=== PATIENT | female | born 1935 | race Caucasian/White ===

== ENCOUNTER → 2016-08-21 | Outpatient (CLI) | payer OTHER ==
[~2016-08-21] MED LIST: ATENOLOL 25MG T25 M1 PO; BACTRIM DS TAB1 EACH PO; BISACODYL SUPP10 MG RECTAL; CHILDREN'S ASPI81 M1 PO; COMPAZINE10 MG PO; COZAAR 25 MG TA25 M1 PO; FEOSOL325 M1 PO; FLOMAX0.4 MG PO; HUMALOG100 UNIT/1 SUBQ; HUMALOG100 UNIT/2 PO; HUMALOG100 UNIT/2 SUBQ; KEFLEX500 MG PO; LANTUS100 UNIT/M SUBQ; LEVEMIR SUBQ; LOVASTATIN 20 M20 MG PO; MILK OF MA2400 MG/10 PO; PLAVIX 75 MG TA75 M1 PO; REMERON15 MG PO; TAMIFLU75 MG PO; TRAMADOL 50 MG50 MG PO
== END ==
LOC: CAT 08:15
DX: M62.81 Muscle weakness (generalized) (principal)

== ENCOUNTER 2016-09-10 13:50 | Emergency (ER) | payer OTHER ==
[~2016-09-10] VITALS: Ht 162.6 cm; Wt 54.9 kg
--- NOTE | ~2016-09-10 | EKG ---
[place] [address] [facility] [employer] [place] [address] ELECTROCARDIOGRAM REPORT Name: KETANGLADIS Room #: REG GIOVANNA Pompa#: [id number] Admission: 09/10/16 Attend Phys: Discharge: Date of : 31 Report #: [id number] THIS REPORT FOR: //name// [facility] ED Test Date: 2016-09-10 Test Time: 14:13:35 Pat Name: GLADIS ACEVES Department: Room: Gender: F Continuity Clerk: MZOOK : 1935 Requested By: Herb Renee Order Number: [id number] MD: Lorenzo Tello Measurements Intervals [place] Rate: 100 P: 12 HI: 164 QRS: -50 QRSD: 134 T: 124 QT: 379 QTc: 489 Interpretive Statements Sinus tachycardia Left bundle branch block Baseline wander in lead(s) V1,V4 No previous ECG available for comparison Electronically Signed On 09-10-2016 15:17:11 AVIONICS SUPERVISOR by Lorenzo Tello [email or web address] <ELECTRONICALLY SIGNED> By: Lorenzo Tello MD 09/10/16 1517 1413 1413 Lorenzo Tello MD /SAL
[2016-09-10] MEDS ORDERED: FEOSOL325 M1 PO (14:22)
[2016-09-10] MEDS ORDERED: CHILDREN'S ASPI81 M1 PO (14:22)
[2016-09-10] MEDS ORDERED: LEVEMIR SUBQ ×2 (14:23→15:02)
[2016-09-10 14:33] LABS: ABSOLUTE NEUTROPHILS 5.1 thou/uL (1.4-8.2); BASOPHILS 0.5 % (0.0-2.0); EOSINOPHILS 1.1 % (0.0-3.0); HEMATOCRIT 26.9 % (37.0-47.0); HEMOGLOBIN 8.7 gm/dL (12.0-15.0); LYMPHOCYTES 27.7 % (24.0-44.0); MCHC 32.5 % (28.0-37.0); MCV 89.3 fL (80.0-100.0); MONOCYTES 10.1 % (1.0-8.0); PLATELET COUNT 289 thou/uL (150-400); POLYS 60.6 % (36.0-66.0); RBC 3.01 mil/uL (4.20-5.00); RDW 16.2 % (10.5-14.5); WBC 8.4 thou/uL (4.0-11.0)
[2016-09-10 14:38] LABS: URINE BILIRUBIN NEGATIVE (Negative); URINE BLOOD NEGATIVE (Negative); URINE COLOR YELLOW; URINE GLUCOSE-RANDOM* 3+ (Negative); URINE KETONES NEGATIVE (Negative); URINE LEUKOCYTES-REFLEX 1+ (Negative); URINE PROTEIN (DIPSTICK) NEGATIVE (Negative); URINE UROBILINOGEN 0.2 E.U./dl (0.2-1.0)
[2016-09-10 14:38] LABS: MANUAL DIFF NO
[2016-09-10 14:41] LABS: ANION GAP 9 mmol/L (7-16); BUN 25 mg/dL (7-18); CALCIUM 8.8 mg/dL (8.5-10.1); CHLORIDE 99 mmol/L (98-107); CO2 27 mmol/L (21-32); CREATININE 1.7 mg/dL (0.6-1.3); GLUCOSE 446 mg/dL (70-99); POTASSIUM 4.5 mmol/L (3.5-5.1); SODIUM 135 mmol/L (136-145)
[2016-09-10] MEDS ORDERED: LOVASTATIN 20 M20 MG PO (14:49)
[2016-09-10] MEDS ORDERED: PLAVIX 75 MG TA75 M1 PO (14:49)
[2016-09-10] MEDS ORDERED: REMERON15 MG PO (14:49)
[2016-09-10] MEDS ORDERED: HUMALOG100 UNIT/2 PO (14:50)
[2016-09-10 14:54] LABS: ALBUMIN 3.1 g/dL (3.4-5.0); ALKALINE PHOSPHATASE 101 U/L (46-116); SGOT 14 U/L (15-37); SGPT 20 U/L (30-65); TOTAL BILIRUBIN 0.1 mg/dL (<0.1-1.0); TOTAL PROTEIN 7.7 g/dL (6.4-8.2); TROPONIN-I < 0.04 ng/mL (<0.04-0.07)
[2016-09-10 14:57] LABS: CASTS None Seen /LPF (None Seen); CRYSTALS None Seen /LPF (None Seen); SQUAMOUS 0-3 Few /LPF (0-3); URINE RBC None Seen /HPF (0-2); URINE WBC-REFLEX 6-15 Few /HPF (0-5)
[2016-09-10] MEDS ORDERED: HUMALOG100 UNIT/1 SUBQ (15:00)
[2016-09-10] MEDS ORDERED: HUMALOG100 UNIT/2 SUBQ (15:01)
[2016-09-10] MEDS ORDERED: TAMIFLU75 MG PO (15:04)
[2016-09-10] MEDS ORDERED: KEFLEX500 MG PO (15:20)
[2016-09-10] MEDS ORDERED: TRAMADOL 50 MG50 MG PO (15:20)
[2016-09-10 16:25] VITALS: BP 142/56
== END 2016-09-10 16:27 | disposition home or self-care (01) ==
LOC: ER 13:50
PROVIDERS: Emergency Medicine
DX: N39.0 Urinary tract infection, site not specified (principal); D64.9 Anemia, unspecified; K59.00 Constipation, unspecified; E11.9 Type 2 diabetes mellitus without complications; M54.5 Low back pain; N28.1 Cyst of kidney, acquired; I10 Essential (primary) hypertension; Z79.4 Long term (current) use of insulin; Z86.73 Personal history of transient ischemic attack (TIA), and cerebral infarction without residual deficits

== ENCOUNTER 2016-09-12 16:09 | Emergency (ER) | payer OTHER ==
[~2016-09-12] VITALS: Ht 162.6 cm; Wt 54.4 kg
--- NOTE | ~2016-09-12 | EKG ---
[place] [address] [facility] [email or web address] [address] ELECTROCARDIOGRAM REPORT Name: GLADIS ACEVES Room #: DEP GIOVANNA Pompa#: [id number] Admission: 09/12/16 Attend Phys: Discharge: 09/12/16 Date of : 31 Report #: [id number] THIS REPORT FOR: //name// [facility] ED Test Date: 2016-09-12 Test Time: 16:22:43 Pat Name: GLADIS ACEVES Department: Room: Gender: F Product Inspection Supervisor: Horacio HOLLAND : 1935 Requested By: Janie Castro Order Number: [id number] MD: Samir Roberts Measurements Intervals [place] Rate: 84 P: 26 MO: 203 QRS: -50 QRSD: 142 T: 150 QT: 420 QTc: 497 Interpretive Statements Sinus rhythm Left bundle branch block Compared to ECG 09/10/2016 14:13:35 Sinus tachycardia no longer present Electronically Signed On 09-13-2016 13:41:42 PAINTER ORDNANCE by Samir Roberts [email or web address] <ELECTRONICALLY SIGNED> By: Samir Roberts MD, [facility] 09/13/16 1341 1622 21 Samir Roberts MD, FACC /EPI
[~2016-09-12 16:09] MED LIST changes: -ATENOLOL 25MG T25 M1 PO; -BACTRIM DS TAB1 EACH PO; -BISACODYL SUPP10 MG RECTAL; -COMPAZINE10 MG PO; -COZAAR 25 MG TA25 M1 PO; -FLOMAX0.4 MG PO; -LANTUS100 UNIT/M SUBQ; -MILK OF MA2400 MG/10 PO
[2016-09-12 17:01] LABS: ABSOLUTE NEUTROPHILS 4.5 thou/uL (1.4-8.2); BASOPHILS 0.9 % (0.0-2.0); EOSINOPHILS 1.5 % (0.0-3.0); HEMATOCRIT 27.4 % (37.0-47.0); HEMOGLOBIN 8.9 gm/dL (12.0-15.0); LYMPHOCYTES 19.7 % (24.0-44.0); MCHC 32.6 % (28.0-37.0); MCV 88.9 fL (80.0-100.0); MONOCYTES 8.8 % (1.0-8.0); PLATELET COUNT 271 thou/uL (150-400); POLYS 69.1 % (36.0-66.0); RBC 3.08 mil/uL (4.20-5.00); WBC 6.5 thou/uL (4.0-11.0)
[2016-09-12 17:09] LABS: MANUAL DIFF NO
[2016-09-12 17:16] LABS: ANION GAP 6 mmol/L (7-16); BUN 28 mg/dL (7-18); CHLORIDE 102 mmol/L (98-107); CO2 30 mmol/L (21-32); CREATININE 1.7 mg/dL (0.6-1.3); GLUCOSE 298 mg/dL (70-99); POTASSIUM 4.7 mmol/L (3.5-5.1); SODIUM 138 mmol/L (136-145)
[2016-09-12 17:20] LABS: ALKALINE PHOSPHATASE 96 U/L (46-116); SGOT 11 U/L (15-37); SGPT 17 U/L (30-65); TOTAL BILIRUBIN 0.1 mg/dL (<0.1-1.0); TOTAL PROTEIN 7.7 g/dL (6.4-8.2); TROPONIN-I < 0.04 ng/mL (<0.04-0.07)
[2016-09-12 17:49] LABS: URINE BILIRUBIN NEGATIVE (Negative); URINE BLOOD NEGATIVE (Negative); URINE COLOR YELLOW; URINE GLUCOSE-RANDOM* NEGATIVE (Negative); URINE KETONES NEGATIVE (Negative); URINE NITRITE NEGATIVE (Negative); URINE PROTEIN (DIPSTICK) NEGATIVE (Negative); URINE UROBILINOGEN 0.2 E.U./dl (0.2-1.0)
[2016-09-12 17:55] LABS: CASTS None Seen /LPF (None Seen); SQUAMOUS 0-3 Few /LPF (0-3)
[2016-09-12 17:56] LABS: BACTERIA 1-9 Few /HPF (None Seen); CRYSTALS None Seen /LPF (None Seen); URINE RBC 0-2 Rare /HPF (0-2); URINE WBC >25 Many /HPF (0-5)
[2016-09-12] MEDS ORDERED: KEFLEX500 MG PO (18:28)
[2016-09-12] MEDS ORDERED: BACTRIM DS TAB1 EACH PO (19:12)
[2016-09-12 19:40] VITALS: BP 141/65
== END 2016-09-12 19:42 ==
LOC: ER 16:09
PROVIDERS: Physician Assistant
DX: D64.9 Anemia, unspecified (principal); R53.1 Weakness; N39.0 Urinary tract infection, site not specified; N17.9 Acute kidney failure, unspecified; E11.9 Type 2 diabetes mellitus without complications; I10 Essential (primary) hypertension; Z86.73 Personal history of transient ischemic attack (TIA), and cerebral infarction without residual deficits

== ENCOUNTER 2016-10-29 11:26 | Inpatient (IN) | payer OTHER ==
[~2016-10-29] VITALS: Ht 162.6 cm; Wt 59.0 kg
--- NOTE | ~2016-10-29 | P ---
[facility] [place] [address] PROCEDURE REPORT Name: GLADIS ACEVES Room #: 439-P ADM IN M.R.#: [id number] Admission: 10/29/16 Attend Phys: Dell Yee MD Discharge: Date of : 31 Report #: [id number] THIS REPORT FOR: //name// CC: Vito Yee MD DATE OF SERVICE: 10/30/2016 PATIENT OF: Dell Yee M.D. and Vito Wray M.D. PROCEDURE: Diagnostic EGD. INDICATION FOR PROCEDURE: This patient has had nausea and vomiting that started 3 days ago. She has also had diarrhea and black dark-colored stools for about 3 days. She has been on iron. She appears to have an ileus on x-rays. She does have diabetes mellitus type 2. Gastroparesis may also be in play here as well. Her hemoglobin has dropped since admission from 11.2 on admission down to 9.4 today since yesterday and EGD is being performed to try to evaluate for possible sources of melena, even though she has been on Plavix and we would not really be able to treat anything significant. Informed consent for this procedure was obtained prior to the administration of any medication. The risks of the procedure, which include bleeding, perforation, infection, complications of sedation and the possibility I could miss something, have been explained to the patient and she has indicated her consent by signing. Propofol was slowly titrated before and during this procedure for patient comfort by the anesthesia service. The [employer] upper videoscope was introduced through the upper esophageal sphincter and advanced under direct visualization to the descending duodenum. Findings are noted on withdrawal of the scope. The duodenal mucosa appears normal throughout its entirety. Pylorus, normal mucosa. Antrum, normal mucosa. Body, normal mucosa. Cardia and fundus, in the fundus of the stomach, there is an abnormal patch of severe gastritis, approximately 3 x 4 cm across. It is nonbleeding, but it is a very a dark violaceous lesion. I was unable to the biopsy it due to the fact that the patient has been taking Plavix. Retroflex view did not reveal any hiatal hernia and the cardia of the stomach appears normal. The scope is withdrawn to the esophagus. The Z line is appropriately located at the top of the gastric folds and appears normal. The esophageal mucosa appears normal throughout its entirety. The scope was withdrawn. The patient went to the recovery area in stable condition. She tolerated the procedure well. IMPRESSION: Large patch of violaceous, edematous gastritis in the fundus of the [address] [address] PROCEDURE REPORT Name: GLADIS ACEVES Room #: 439-P ADM IN M.R.#: [id number] Admission: 10/29/16 Attend Phys: Dell Yee MD Discharge: Date of : 31 Report #: [id number] stomach, uncertain etiology. RECOMMENDATIONS: My recommendations were to ask her to have a gastric emptying study in the morning. We will start her on clear liquids p.o. cautiously and resume her medications. I think the EGD should be repeated when she can be off of Plavix so that we can biopsy this lesion or at the very least be sure that it had healed up and gone away. Perhaps this could be done within the next couple of weeks. Thank you very much once again for allowing me to participate in her care, Dr. Yee. <ELECTRONICALLY SIGNED> By: Verito Medrano DO 11/05/16 1153 1417 0115 Verito Medrano DO /nt
--- NOTE | ~2016-10-29 | HC ---
[facility] [address] [facility] [place] [address] CONSULTATION Name: GLADIS ACEVES Room #: 439-P [facility] IN M.R.#: [id number] Admission: 10/29/16 Attend Phys: Dell Yee MD Discharge: 11/06/16 Date of : 31 Report #: [id number] THIS REPORT FOR: //name// CC: Vito Yee DATE OF SERVICE: 10/29/2016 CHIEF COMPLAINT: Abdominal pain. Consultation from the emergency department physician. HISTORY OF PRESENT ILLNESS: The patient is a very pleasant 81-year-old female who is a resident at [facility] who developed abdominal distention with diarrhea and melena over the past 5-6 days. She has complained of decreased urine output and poor appetite during that period. She also has had episode of nausea and emesis 3 nights ago. The patient does take iron supplements, which the patient does believe are consistent with the dark stools. She does have extensive prior operative history with previous cholecystectomy, appendectomy, hysterectomy, previous ureteral stent apparently for kidney stones and urinary tract infection. PAST MEDICAL HISTORY: Positive for type 2 diabetes, hypertension, previous CVA, on Plavix and aspirin for that. PAST SURGICAL HISTORY: As described above. Cholecystectomy, appendectomy, hysterectomy, also has history of gastric ulcers, but the patient does not believe she has ever undergone EGD. She does believe that she has had colonoscopy greater than 10 years ago and does not remember the results of any of that. SOCIAL HISTORY: The patient is resident at [facility]. She is a retired [employer]PPER [employer]ING [employer]. Negative for tobacco, ETOH or drug use. MEDICATIONS: Include aspirin, iron supplement, Levemir, lovastatin, Plavix, Remeron, insulin, Tamiflu. REVIEW OF SYSTEMS: CONSTITUTIONAL: Negative for fevers, chills or unwanted weight loss. OCULAR: No diplopia or visual change. HEENT: No dysphagia or odynophagia. PULMONARY: No productive cough, no hemoptysis. CARDIOVASCULAR: No chest pain or palpitation. GASTROINTESTINAL: As described in the HPI. Positive for abdominal pain, melena, diarrhea as well as abdominal distention. GENITOURINARY: Positive for decreased urine output. Negative for dysuria or hematuria. MUSCULOSKELETAL: Negative for back pain or joint swelling. CUTANEOUS: Negative for skin lesions or rashes. NEUROLOGIC: No focal weakness or tingling. PHYSICAL EXAMINATION: GENERAL: The patient is afebrile and normotensive. She [facility] [address] [place] [address] CONSULTATION Name: GLADIS ACEVES Room #: 439-P [facility] IN M.R.#: [id number] Admission: 10/29/16 Attend Phys: Dell Yee MD Discharge: 11/06/16 Date of : 33 Report #: [id number] is awake, alert and oriented. She does give appropriate history. Normal mood and affect are appreciated. HEENT: Head is atraumatic and normocephalic. She does appear pale. No icterus is appreciated. Cranial nerves are intact and symmetric. Mucosae are slightly dry. NECK: Supple, no jugular venous distention. LUNGS: Clear to auscultation. HEART: Regular, without murmur. ABDOMEN: Soft and mildly distended. She is diffusely mildly tender to palpation. No rebound or guarding is appreciated. Multiple well-healed surgical scars. No obvious hernia. EXTREMITIES: Without clubbing, cyanosis or edema. 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 No focal deficits. No rashes or lesions. LABORATORY STUDIES: Reviewed. Urinalysis showed 1+ glucose, 2+ leukocytes, 6-10 wbc's and 1-9 bacteria. Complete blood count showed a hemoglobin of 11.2, platelets of 291. White count of 5.9. No left shift with segmental neutrophils of 57%. Basic metabolic profile shows a creatinine of 1.8, BUN of 41, AST of 298, ALT of 24, lipase of 61, alk phos of 105, total bilirubin 0.1, lactate of 1.9. Plain films of the abdomen obtained in the emergency department showed diffuse bowel distention consistent with ileus, no obvious obstruction. No air fluid levels. No free air. CT scan of the abdomen and pelvis without contrast obtained in the emergency department shows bile duct dilatation up to 1.9 cm. Central mild intrahepatic ductal prominence noted. Pancreas unremarkable. Mild distention of the distal small bowel loops. No sign of colitis. No free air or free fluid. Mild diverticulosis is seen. No diverticulitis is noted. All of this was read as being consistent with a focal ileus versus partial small-bowel obstruction, small right-sided pleural effusion. IMPRESSION: 1. 81-year-old female patient with 5-6 days of diarrhea with reported melena, hemoglobin greater than 11, but patient does appear dehydrated based upon urinalysis, BUN and creatinine levels. No sign of bowel obstruction or acute intraabdominal process that would be amenable to general surgical intervention. Would consider evaluation by Gastroenterology for potential colonoscopy versus EGD given history of gastric ulcers and more recent reports of melena. Would send stool sample for evaluation to rule out Clostridium difficile infection. Low index of suspicion for this given her normal white blood cell count and overall clinical picture. 2. No recommendation for any surgical intervention at this time. Consultation very much appreciated. We will continue to follow closely and make further recommendations based upon clinical status, radiographic findings and laboratory findings. <ELECTRONICALLY SIGNED> By: Davonte Pedroza MD 11/11/16 0650 1832 0208 Davonte Pedroza MD /nt
--- NOTE | ~2016-10-29 | HC ---
[facility] [address] [place] [address] CONSULTATION Name: GLADIS ACEVES Room #: 439-P ADM IN M.R.#: [id number] Admission: 10/29/16 Attend Phys: Dell Yee MD Discharge: Date of : 31 Report #: [id number] THIS REPORT FOR: //name// CC: Vito Yee DATE OF SERVICE: 11/05/2016 INDICATION: Tachycardia. HISTORY OF PRESENT ILLNESS: This is an 81-year-old female who was transferred from [facility] secondary to abdominal pain and decreased urine out. She was diagnosed with an ileus, gastritis, and urinary tract infection. She was also found to have general debility and cervical radiculopathy. We are asked to evaluate the patient for tachycardia. I have reviewed the monitor, revealing sinus tachycardia and sinus rhythm. There were frequent atrial premature contractions with nonsustained SVT, probable paroxysmal atrial tachycardia. Recent TSH level was within normal limits. She offers no complaints of dyspnea or chest pains. PAST MEDICAL HISTORY: Hypertension, diabetes mellitus, and CVA. ALLERGIES: None. MEDICATIONS: Please see the MAR for full listing. SOCIAL HISTORY: Negative for tobacco use. The patient lives in a half-way. FAMILY HISTORY: Negative for premature CAD. REVIEW OF SYSTEMS: A full 10-point review of systems performed. Only the pertinent positives and negatives are described in the HPI. PHYSICAL EXAMINATION: VITAL SIGNS: Blood pressure is 150/80, heart rate is 100 beats per minute. GENERAL APPEARANCE: This is an elderly appearing female, in no acute respiratory distress. HEAD AND EYES: Normocephalic. Sclerae are anicteric. ENT: Oral mucosa moist. NECK: Supple. LUNGS: Diminished breath sounds at the bases. CARDIAC: S1, S2 positive, 1/6 systolic murmur. ABDOMEN: Soft and nontender. EXTREMITIES: No major joint deformities. Trace lower extremity edema. LABORATORY VALUES: White count is 8.9, hemoglobin is 9.2. Creatinine is 1.1. [facility] [address] [place] [address] CONSULTATION Name: GLADIS ACEVES Room #: 439- ADM IN M.R.#: [id number] Admission: 10/29/16 Attend Phys: Dell Yee MD Discharge: Date of : 33 Report #: [id number] ASSESSMENT: 1. Nonsustained supraventricular tachycardia/paroxysmal atrial tachycardia, appears to be clinically asymptomatic. We will start the patient on a beta ciara. The TSH level is within normal limits. She will need an echocardiogram. 2. Abdominal pain/ileus, appears to be improving. 3. Urinary tract infection, continue antibiotics. 4. Cervical radiculopathy. 5. Advanced age/general debility. Thank you for allowing me to participate in the care of your patient. <ELECTRONICALLY SIGNED> By: Jame Packer MD 11/06/16 0824 1055 1138 MD xuan Kline
--- NOTE | ~2016-10-29 | 2DMMODE ---
[facility] [place] [address] 2 D/M-MODE ECHOCARDIOGRAM Name: GLADIS ACEVES Room #: 439-P ADM IN M.R.#: [id number] Admission: 10/29/16 Attend Phys: Duong Pierre Discharge: Date of : 31 Date of Service: 11/05/16 1455 Report #: [id number] THIS REPORT FOR: //name// APPROVED REPORT EXAM: Comprehensive 2D, Doppler, and color-flow Echocardiogram Patient Location: Bedside/Room 439 Blood Pressure: 139/64 mmHg HR: 85 bpm Other Information Study Quality: Good Technically limited study due to uncooperative and confused patient.. Indications SVT. Hx: DM, HTN, CVA 2D Dimensions IVSd: 13.00 (7-11mm) LVOT Diam: 19.00 (18-24mm) LVDd: 4.40 mm PWd: 13.00 (7-11mm) LVDs: 39.00 (25-40mm) IVC: 24.00 mm Aortic Root: 32.00 mm Volumes Left Atrial Volume (Systole) LA ESV Index: 33.00 mL/m2 Aortic Valve AoV Peak Paulino.: 1.70 m/s AO Peak Gr.: 11.00 mmHg LV Max: 0.87 m/s ROBERTO CARLOS Vmax: 1.40 cm2 Mitral Valve MV E Max Paulino.: 1.50 m/s E/A Ratio: 1.3 MV A Paulino.: 1.20 m/s MV Decel. Time: 94.00 ms TDI E/Lateral E': 39.00 E/Medial E': 34.00 [facility] [address] [place] [address] 2 D/M-MODE ECHOCARDIOGRAM Name: GLADIS ACEVES Room #: 439-P ADM IN ..#: [id number] Admission: 10/29/16 Attend Phys: Duong Pierre Discharge: Date of : 31 Date of Service: 11/05/16 1455 Report #: [id number] Pulmonary Valve PV Peak Paulino.: 0.67 m/s Tricuspid Valve TR Peak Paulino.: 4.10 m/s RAP Estimate: 15.00 mmHg TR Peak Gr.: 66.00 mmHg RVSP: 81.00 mmHg Left Ventricle The left ventricle is normal size. Regional wall motion abnormalities are noted. Paradoxical septal motion consistent with conduction abnormality. Mild concentric left ventricular hypertrophy. Left ventricular systolic function is decreased. LVEF is 35-40%. Grade II - pseudonormal filling dynamics. Right Ventricle The right ventricle is normal size. The right ventricular systolic function is normal. Atria Left atrium is borderline dilated. The right atrium size is normal. Aortic Valve Aortic valve is calcified. No aortic regurgitation is present. Mild aortic stenosis. Mitral Valve Mitral valve leaflets are mildly thickened. Moderate mitral annular calcification. Moderate mitral regurgitation. Tricuspid Valve The tricuspid valve is normal in structure. There is moderate tricuspid regurgitation. The right atrial pressure is estimated at 15 mmHg. There is severe pulmonary hypertension with an estimated PAP of 81mmHg. Pulmonic Valve Pulmonic valve is not well visualized. Trace pulmonic regurgitation. Great Vessels The aortic root is normal in size. Aortic arch is not well visualized. IVC is dilated and collapses <50% with inspiration. Pericardium [facility] [address] [place] [address] 2 D/M-MODE ECHOCARDIOGRAM Name: GLADIS ACEVES Room #: 439-P ADM IN M.R.#: [id number] Admission: 10/29/16 Attend Phys: Duong Pierre Discharge: Date of : 31 Date of Service: 11/05/16 1455 Report #: [id number] There is no pericardial effusion. Right and left pleural effusion noted. <Conclusion> The left ventricle is normal size. Regional wall motion abnormalities are noted. Paradoxical septal motion consistent with conduction abnormality. Left ventricular systolic function is decreased. LVEF is 35-40%. Left atrium is borderline dilated. Aortic valve is calcified. Mild aortic stenosis. Mitral valve leaflets are mildly thickened. Moderate mitral annular calcification. Moderate mitral regurgitation. There is moderate tricuspid regurgitation. The right atrial pressure is estimated at 15 mmHg. There is severe pulmonary hypertension with an estimated PAP of 81mmHg. Trace pulmonic regurgitation. IVC is dilated and collapses <50% with inspiration. <ELECTRONICALLY SIGNED> By: Barrett Roldan MD 11/05/16 1455 1455 1455 Barrett Roldan MD /INF
--- NOTE | ~2016-10-29 | HC ---
[facility] [place] [address] CONSULTATION Name: GLADIS ACEVES Room #: 439-P ADM IN M.R.#: [id number] Admission: 10/29/16 Attend Phys: Dell Yee MD Discharge: Date of : 33 Report #: [id number] THIS REPORT FOR: //name// CC: Vito Yee MD DATE OF SERVICE: 10/30/2016 GASTROENTEROLOGY CONSULTATION PATIENT OF: Vito Wray M.D. and Dell Yee M.D. HISTORY OF PRESENT ILLNESS: This is a very pleasant 81-year-old white female whom I was asked to see her for evaluation of nausea, vomiting and diarrhea. The patient states she became nauseated this past Thursday and Thursday, she developed projectile vomiting. She had stopped urinating on Thursday or Thursday and had a straight cath done on Thursday. She has been passing some black stools, but has not been on iron. She still has no appetite at this time, still is mildly nauseated, but has not had any further vomiting or diarrhea since she was hospitalized. PAST MEDICAL HISTORY: Significant for hypertension. 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 She has brittle diabetes mellitus. She has history of hyperlipidemia. She was on thyroid medication in the past, but has not been on thyroid for several years. She has a history of arthritis. PAST SURGICAL HISTORY: Significant for cholecystectomy, appendectomy and she has had bilateral salpingo-oophorectomies. She has had bilateral cataract extractions. 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 Her right eye vision is now failing. ALLERGIES: No known drug allergies. MEDICATIONS: Prior to admission includes Dulcolax suppositories, Plavix and ferrous sulfate. She takes Levemir, Humalog, insulin, lovastatin, milk of magnesia, Remeron, Compazine and tramadol. SOCIAL HISTORY: The patient does not smoke. She rarely drinks any alcohol. She has had a blood transfusion in the past. Denies any history of jaundice, hepatitis or pancreatitis. FAMILY HISTORY: Significant for thyroid cancer in her mother. She has a sister and brother that both had to have colon resections, but they were not for colon [address] [address] CONSULTATION Name: GLADIS ACEVES Room #: 439-P ADM IN M.R.#: [id number] Admission: 10/29/16 Attend Phys: Dell Yee MD Discharge: Date of : 33 Report #: [id number] cancer. She is unsure what the reason for these colon resections were, other than bowel blockages. REVIEW OF SYSTEMS: She admits to dysphagia. Denies odynophagia. She does have gastroesophageal reflux. She has no history of a hiatal hernia, but has had peptic ulcer disease in the past. She states she thinks her weight has gone up recently and usually her appetite is very good, but since Thursday, she has really been nauseated and has still no appetite today. She denies any hematemesis or hematochezia. She has had black stools and she thinks that is from iron. She does have constipation. Denies diarrhea. She had pain in both the lower quadrants that began last weekend. It then moved to the midline and shot up into the mid chest. It is now settled down and all the other pain has resolved, except for tenderness in the right lower quadrant and pain in the right lower quadrant. She denies jaundice, hepatitis or pancreatitis. PHYSICAL EXAMINATION: GENERAL: Reveals a well-developed, well-nourished 81-year-old white female in no apparent distress at the time of my examination. She is awake, alert, oriented times 4 and cooperative and very pleasant to converse with. VITAL SIGNS: Blood pressure is 126/59, temperature 97.4, pulse 73 and respirations are 20. HEENT: She is normocephalic and atraumatic and anicteric. HEART: Rate and rhythm are regular, with a normal S1 and S2. LUNGS: Clear bilaterally. ABDOMEN: Soft. Bowel sounds are present in all 4 quadrants. There is no palpable organomegaly or mass. There is some tenderness to palpation in the right lower quadrant, but no rebound or guarding. EXTREMITIES: Warm and dry. NEUROLOGIC: She appears grossly intact, without lateralizing signs. SIGNIFICANT LABORATORY DATA: Show a creatinine of 1.8 on admission with a BUN of 41. Lipase was normal. Liver enzymes are either low or normal. CBC: White count is normal; hemoglobin 11.2 on admission, down to 9.4 after hydration. She has not had any further stools in the hospital. Urinalysis just shows 1+ glucose. Urine culture is pending. 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 Liver was normal, spleen showed splenic granulomas, but was normal in size. Gallbladder is absent. There is significant bile duct dilatation, measuring up to 1.9 cm, compared with 1.5 cm on a previous exam a couple of months ago. There is mild central intrahepatic ductal prominence. The pancreas is normal in size, without abnormalities. Adrenal glands are normal. There was some diverticulosis seen in the distal colon. No diverticulitis. Uterus was surgically absent, they said. There is some mild gaseous and fluid distention of the [id number] small bowel loops in the upper pelvic region, with some more proximal and distal [facility] [address] [place] [address] CONSULTATION Name: GLADIS ACEVES Room #: 439-P ADM IN M.R.#: [id number] Admission: 10/29/16 Attend Phys: Dell Yee MD Discharge: Date of : 33 Report #: [id number] small bowel normal in caliber and they thought this looks like an ileus. IMPRESSION: 1. Nausea and vomiting with one episode of projectile vomiting this past Thursday and diarrhea with black stools. The patient is on oral iron. Lower abdominal pain that started bilaterally in the lower quadrants and moved to the midline and then went up into her mid chest area. Now the pain is settled only in the right lower quadrant. She has had an appendectomy and bilateral salpingo-oophorectomies. It is possible she may have adhesions in this area. 2. Urinary retention. The patient has an indwelling Monet catheter. I am not sure why she would develop a neurogenic bladder at this point. 3. History of dysphagia. 4. Gastroesophageal reflux. 5. Constipation. 6. Hypertension. 7. History of a right cerebrovascular accident with left-sided symptoms that seem to be resolved. 8. Brittle diabetic. 9. Hyperlipidemia. 10. Arthritis. 11. 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 12. Several family members have had thyroid problems. Her mother had thyroid cancer. 13. Ileus on CT. 14. Dilated bile ducts with normal liver enzymes. The patient is status post cholecystectomy. 15. 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 17. History of an episode of severe sepsis from a urinary tract infection at [place] last May. She was in the hospital 2 weeks at that time and was apparently very ill at that point. RECOMMENDATIONS: My recommendations are as follows: I agree with the proton pump inhibitors. We are planning on doing an EGD today. She is n.p.o. for that and she is agreeable. We will schedule her for MiraLax 1-3 times a day as needed for constipation. She can continue this at home for her constipation. We will repeat a KUB and upright in the morning to follow up on this ileus/possible small-bowel obstruction. Thank you very much once again for allowing me to participate in her care, Dr. Yee. <ELECTRONICALLY SIGNED> By: Verito Medrano DO 10/31/16 0015 [id number] Verito Medrano DO /nt
--- NOTE | ~2016-10-29 | HC ---
[facility] [place] [address] CONSULTATION Name: GLADIS ACEVES Room #: 439-P [facility] IN M.R.#: [id number] Admission: 10/29/16 Attend Phys: Dell Yee MD Discharge: 11/06/16 Date of : 33 Report #: [id number] THIS REPORT FOR: //name// CC: Vito Yee DATE OF SERVICE: 11/03/2016 HISTORY OF PRESENT ILLNESS: This is an 81-year-old female patient who was evaluated by me for multiple symptoms. I do not think the history is very clear. She came with abdominal symptoms on admission, but today, her most of the symptom was that she is having pain in the right shoulder, in the neck and spine. She said it is going on for some time, but it has become worse. It is associated with some confusion, but she indicates she does not have any confusion. She does not know anything which makes this pain better or worse. Subsequently, I talked to the patient's daughter and she indicates that this patient was working until about 3 years ago and she has complaint of a lot of back and neck pain. She indicates the patient had an MRI of the brain in [place] about 6 months ago and they did not find any significant abnormality. REVIEW OF SYSTEMS: Partly from the patient and partly from the record. It looks like this patient is being evaluated for abdominal pain by GI. She had some nausea and vomiting. She apparently has a urinary retention. A 14-point review of system was carried out and that also appeared to be showing some history of dysphagia, gastroesophageal reflux, hypertension, stroke on the left according to the patient, but I do not have further, history of diabetes, hyperlipidemia. This was her relevant 14-point review of systems. PAST MEDICAL HISTORY: Positive for bladder infection, but apparently, this all episode is relatively recent. FAMILY HISTORY: Negative for any early age stroke. SOCIAL HISTORY: She does not smoke or drink alcohol. PHYSICAL EXAMINATION: Limited. She indicates she is in a lot of pain. She was irritated because everybody think she is confused. She will not answer the orientation question, but her memory and fund of knowledge appeared to be diminished, but I do not know what her baseline is. Cranial nerve examinations indicate that she has some vision problem with the left eye. Allowing for that, her cranial nerve examination was mostly unremarkable. She is complaining of a lot of pain in the right shoulder and she has a limited mobility there. She has very little movement in the lower extremity. She has well defined to some extent hyperreflexes in the lower extremities. She does appear to have an upgoing plantar. I tried to do the position sense, she will not cooperate with [facility] [address] [place] [address] CONSULTATION Name: GLADIS ACEVES Room #: 439-P DIS IN M.R.#: [id number] Admission: 10/29/16 Attend Phys: Dell Yee MD Discharge: 11/06/16 Date of : 33 Report #: [id number] me. I tried to do the cerebellar sign, she does not have enough strength. I tried to look at the fundus and again, she will not cooperate. She is thinly built individual who does not have any dysmorphic features of eyes, ears and face. Her vision and hearing look adequate. She does not appear to have any thyroid mass. To me, her heart looks irregular, but heart sound looks unremarkable. She does not appear to have marked respiratory difficulty. She has no edema, cyanosis or jaundice. She cannot walk. She barely has much movement in the lower extremities. She indicates this is going on since she has been admitted, but I am not totally certain and I cannot confirm that. Her vital signs indicate a blood pressure of 146/95, respiration is 20, pulse is 96, temperature is 98.4. LABORATORY DATA: Indicates a white count of 9.3. Her last potassium was a little low at 3.3. Her diabetes is out of control with last glucose of 255. I reviewed multiple physicians' note and I reviewed her CAT scan. The CAT scan really did not show any acute changes. IMPRESSION: This is a complicated case, which needs further workup to determine the etiology of the patient's symptom. Firstly, I am concerned about the weakness in the upper and lower extremity and her pain in the shoulder area. This is associated with bladder abnormality and I would like to exclude a spine lesion. Secondly, she did get some morphine and she does have some infection, so it is possible she is developing encephalopathy, but she also has an abnormal rhythm of the heart. We need to make sure it was not a stroke. She needs extensive workup on all these fronts. I would like to do the MRI of whole spine and the brain, but I do not think this patient will be able to cooperate. Since symptoms are in the shoulder and in the neck which she does not move very well, I will start with the MRI of the C-spine and T-spine and see if she is able to tolerate that. I will try to get her MRI of the brain from [facility]. We may have to do rest of the MRI tomorrow. RECOMMENDATIONS: 1. MRI of the brain. 2. MRI of the C-spine. 3. We may have to do an MRI of the brain and L-spine, but I do not think she can tolerate the whole procedure in one setting and we will try to do it in 2 settings depending upon the results of C-spine and T-spine. I did order that stat. We do need some more blood workup which I ordered to her confusion maybe because of morphine, but to evaluate her further, I will do an EEG. I spent more than 50 minutes of time taking care of this patient today and majority of that time was spent counseling the patient about multiple things which I will be doing and my plan, prognosis, etc. I think the patient understood all those, but I am not certain. Therefore, I called the patient's daughter and discussed the same thing with her. [facility] [address] [place] [address] CONSULTATION Name: GLADIS ACEVES Room #: 439-P DIS IN M.R.#: [id number] Admission: 10/29/16 Attend Phys: Dell Yee MD Discharge: 11/06/16 Date of : 33 Report #: [id number] Thank you very much for this referral and I did talk this patient with the nurses looking after this patient and I will follow this patient with you from tomorrow. <ELECTRONICALLY SIGNED> By: Negro Veras MD 11/07/16 1926 [id number] 1628 Negro Veras MD /nt
--- NOTE | ~2016-10-29 | H ---
[facility] [address] [place] [address] HISTORY AND PHYSICAL Name: GLADIS ACEVES Room #: 439-P ADM IN M.R.#: [id number] Admission: 10/29/16 Attend Phys: Dell Yee MD Discharge: Date of : 33 Report #: [id number] THIS REPORT FOR: //name// CC: Vito Yee DATE OF SERVICE: 10/29/2016 CHIEF COMPLAINT: Abdominal pain and urinary retention. HISTORY OF PRESENT ILLNESS: The patient is an 81-year-old female with history of CVA, history of diabetes, hypertension, and history of urinary retention in the past, presented from [facility] secondary to diffuse abdominal pain and decreased urine output. The patient has had abdominal pain since last Thursday. She has had nausea. She vomited once on Thursday. She has also noticed black diarrhea over the last 3 days. The patient has also noticed decreased urine output and subsequently sent to the ER. The nursing staff was able to get a urine output of 200 mL prior to sending the patient to the emergency room. She has also had poor appetite. PAST MEDICAL HISTORY: Significant for cholecystectomy, appendectomy, hysterectomy, stomach ulcers. No history of any bowel obstruction. She has history of dysphagia, history of type 2 diabetes, hypertension, and CVA. HOME MEDICATIONS: Reviewed. Please look at the nursing documentation of home medications. ALLERGIES: No known drug allergy. SOCIAL HISTORY: No smoking, alcohol abuse or illicit drug abuse. The patient lives in a long term. FAMILY HISTORY: Noncontributory for this 81-year-old female. REVIEW OF SYSTEMS: CONSTITUTIONAL: No recent weight loss, weight gain. No fever or chills. EYES: No change in vision. THROAT: Denies any sore throat. CARDIOVASCULAR: No chest pain, dizziness, palpitations. RESPIRATORY: No cough, expectoration. GASTROINTESTINAL: As above. GENITOURINARY: As above. NEUROLOGIC: No new focal numbness or weakness of the extremity. She does have weakness on the right leg secondary to old CVA. [facility] [employer] [place] [address] HISTORY AND PHYSICAL Name: GLADIS ACEVES Room #: 439-P [facility] IN M.R.#: [id number] Admission: 10/29/16 Attend Phys: Dell Yee MD Discharge: Date of : 33 Report #: [id number] The 12-point review of system is negative other than the positive and negative dictated in the history of present illness and the review of system. PHYSICAL EXAMINATION: VITAL SIGNS: Blood pressure is 138/79, heart rate of 78 per minute, afebrile. GENERAL: The patient is awake and alert, not in acute respiratory distress. EYES: Pupils equal, reactive to light, nonicteric, conjunctivae. THROAT: She has a dry oral mucosa. NECK: Supple, no JVD, no bruit, no lymphadenopathy. CARDIOVASCULAR SYSTEM: S1, S2, negative S3, no murmur. CHEST: Bilateral air entry present. Clear on auscultation. ABDOMEN: Mildly distended, particularly in the lower abdomen. There is mild diffuse tenderness noted. No rebound tenderness, no guarding. PERIPHERY: No pedal edema. No calf tenderness. Dorsalis pedis 1+. NEUROLOGICAL: No facial asymmetry noted. Power is 5/5 in upper extremities. She has weakness in the right leg. Power is about 3-4/5. Left leg has normal power. LABORATORY DATA: Reviewed. UA shows 6-15 wbc's. White count is 5.9, hemoglobin 11.3, platelets 291. BUN and creatinine of 41 and 1.8. She does have chronic kidney disease, with baseline creatinine is 1.7. AST and ALT are within normal limit. Bilirubin is normal. Lipase is 61. Albumin is 3.1. CT of the abdomen and pelvis done in the emergency room showed dilated gaseous and fluid distention of the mid to distal small bowel loops in the upper pelvic with a more proximal and distal small bowel, normal to caliber, this could represent a focal ileus. Small-bowel obstruction not excluded. No abscess or free air. A small right-sided effusion. Bile duct dilation is accentuated. ASSESSMENT: 1. Abdominal pain, most likely secondary to ileus, rule out partial small-bowel obstruction. The patient is hesitant to have a NG-tube. I did discuss that the NG tube may need to be placed if she has persistent nausea and vomiting. We will keep n.p.o. and hydrated with IV fluid. We will repeat x-ray of the abdomen in the morning. We will consult surgery and GI. We will also check a stool for C. diff and stool for occult blood. 2. Urinary retention. Monet catheter has been placed in the emergency room. We will consider urology. 3. Deep venous thrombosis prophylaxis. She will be placed on SCD on the leg for deep venous thrombosis prophylaxis. 4. History of hypertension. We will monitor and cover with p.r.n. hydralazine as needed. 5. Diabetes. The patient will be placed on sliding scale insulin. 6. Urinary tract infection. The patient will be continued on IV ceftriaxone. We will follow cultures and adjust antibiotic as needed. [facility] [address] [place] [address] HISTORY AND PHYSICAL Name: GLADIS ACEVES Room #: 439-P ADM IN .R.#: [id number] Admission: 10/29/16 Attend Phys: Dell Yee MD Discharge: Date of : 33 Report #: [id number] Treatment plan has been explained to the patient in detail. <ELECTRONICALLY SIGNED> By: Dell Yee MD 10/30/16 1256 1701 [id number] Dell Yee MD /nt
[~2016-10-29 11:26] MED LIST changes: +BACTRIM DS TAB1 EACH PO
[2016-10-29 11:27] VITALS: BP 158/84
[2016-10-29 12:10] LABS: URINE BILIRUBIN NEGATIVE (Negative); URINE BLOOD NEGATIVE (Negative); URINE COLOR YELLOW; URINE GLUCOSE-RANDOM* 1+ (Negative); URINE KETONES NEGATIVE (Negative); URINE LEUKOCYTES-REFLEX 2+ (Negative); URINE PROTEIN (DIPSTICK) NEGATIVE (Negative); URINE SPECIFIC GRAVITY <= 1.005 (1.003-1.035); URINE UROBILINOGEN 0.2 E.U./dl (0.2-1.0)
[2016-10-29 12:12] LABS: HEMATOCRIT 33.7 % (37.0-47.0); HEMOGLOBIN 11.2 gm/dL (12.0-15.0); MCHC 33.2 g/dL (28.0-37.0); MCV 90.3 fL (80.0-100.0); PLATELET COUNT 291 thou/uL (150-400); RBC 3.73 mil/uL (4.20-5.00); RDW 15.4 % (10.5-14.5); WBC 5.9 thou/uL (4.0-11.0)
[2016-10-29 12:16] LABS: MANUAL DIFF YES
[2016-10-29 12:24] LABS: CASTS None Seen /LPF (None Seen); CRYSTALS None Seen /LPF (None Seen); SQUAMOUS 0-3 Few /LPF (0-3)
[2016-10-29 12:25] LABS: URINE RBC None Seen /HPF (0-2); URINE WBC-REFLEX 6-15 Few /HPF (0-5)
[2016-10-29 12:32] LABS: ALBUMIN 3.5 g/dL (3.4-5.0); ALKALINE PHOSPHATASE 105 U/L (46-116); ANION GAP 13 mmol/L (7-16); BUN 41 mg/dL (7-18); CALCIUM 9.2 mg/dL (8.5-10.1); CHLORIDE 104 mmol/L (98-107); CO2 23 mmol/L (21-32); CREATININE 1.8 mg/dL (0.6-1.3); DIRECT BILIRUBIN < 0.1 mg/dL (<0.1-0.3); GLUCOSE 298 mg/dL (70-99); POTASSIUM 4.2 mmol/L (3.5-5.1); SGOT 26 U/L (15-37); SGPT 24 U/L (30-65); SODIUM 140 mmol/L (136-145); TOTAL BILIRUBIN 0.1 mg/dL (<0.1-1.0); TOTAL PROTEIN 8.1 g/dL (6.4-8.2)
[2016-10-29 12:33] LABS: ABSOLUTE NEUTROPHILS 3.5 thou/uL (1.4-8.2); PLATELET ESTIMATE NORMAL; TOTAL CELL COUNT 100
[2016-10-29 16:45] VITALS: BP 138/79
[2016-10-29 17:25] VITALS: BP 112/50
[2016-10-29 20:01] VITALS: BP 126/54
[2016-10-29 23:53] VITALS: BP 112/60
[2016-10-30 04:16] VITALS: BP 126/46
[2016-10-30] MEDS ORDERED: BISACODYL SUPP10 MG RECTAL (07:34)
[2016-10-30] MEDS ORDERED: MILK OF MA2400 MG/10 PO (07:36)
[2016-10-30] MEDS ORDERED: COMPAZINE10 MG PO (07:40)
[2016-10-30 08:00] VITALS: BP 126/59
[2016-10-30 10:58] LABS: HEMATOCRIT 28.1 % (37.0-47.0); HEMOGLOBIN 9.4 gm/dL (12.0-15.0); MCH 30.3 pg (26.0-34.0); MCHC 33.6 g/dL (28.0-37.0); MCV 90.3 fL (80.0-100.0); RBC 3.11 mil/uL (4.20-5.00); WBC 4.1 thou/uL (4.0-11.0)
[2016-10-30 11:17] LABS: CALCIUM 8.8 mg/dL (8.5-10.1); CREATININE 1.4 mg/dL (0.6-1.3); POTASSIUM 4.1 mmol/L (3.5-5.1)
[2016-10-30 12:01] VITALS: BP 137/77
[2016-10-30 17:38] VITALS: BP 137/59
[2016-10-31] VITALS (7 sets, daily range): BP systolic 138–160; BP diastolic 50–70
[2016-10-31 05:40] LABS: BASOPHILS 0.4 % (0.0-2.0); EOSINOPHILS 2.2 % (0.0-3.0); HEMATOCRIT 28.5 % (37.0-47.0); HEMOGLOBIN 9.5 gm/dL (12.0-15.0); LYMPHOCYTES 31.6 % (24.0-44.0); MCH 29.8 pg (26.0-34.0); MCHC 33.2 g/dL (28.0-37.0); MCV 89.9 fL (80.0-100.0); MONOCYTES 8.9 % (1.0-8.0); PLATELET COUNT 245 thou/uL (150-400); POLYS 56.9 % (36.0-66.0); RBC 3.17 mil/uL (4.20-5.00); WBC 5.4 thou/uL (4.0-11.0)
[2016-10-31 05:52] LABS: MANUAL DIFF NO
[2016-10-31 06:02] LABS: CALCIUM 8.6 mg/dL (8.5-10.1); CREATININE 1.4 mg/dL (0.6-1.3)
[2016-11-01 05:27] VITALS: BP 146/58
[2016-11-01 08:00] VITALS: BP 163/86
[2016-11-01 15:31] VITALS: BP 155/46
[2016-11-01 17:50] VITALS: BP 140/38
[2016-11-01 20:10] VITALS: BP 116/41
[2016-11-01 23:28] VITALS: BP 125/66
[2016-11-02 04:39] VITALS: BP 147/59
[2016-11-02 08:00] VITALS: BP 131/58
[2016-11-02 12:00] VITALS: BP 121/49
[2016-11-02 16:00] VITALS: BP 129/44
[2016-11-02 20:09] VITALS: BP 106/70
[2016-11-03 02:15] LABS: ABSOLUTE NEUTROPHILS 6.1 thou/uL (1.4-8.2); BASOPHILS 0.6 % (0.0-2.0); EOSINOPHILS 1.1 % (0.0-3.0); HEMATOCRIT 29.2 % (37.0-47.0); HEMOGLOBIN 9.8 gm/dL (12.0-15.0); MCH 29.5 pg (26.0-34.0); MCHC 33.3 g/dL (28.0-37.0); MCV 88.5 fL (80.0-100.0); MONOCYTES 10.1 % (1.0-8.0); PLATELET COUNT 236 thou/uL (150-400); POLYS 66.2 % (36.0-66.0); RDW 14.5 % (10.5-14.5); WBC 9.3 thou/uL (4.0-11.0)
[2016-11-03 02:31] LABS: MANUAL DIFF NO
[2016-11-03 02:32] LABS: CALCIUM 8.8 mg/dL (8.5-10.1); CREATININE 1.3 mg/dL (0.6-1.3); POTASSIUM 3.3 mmol/L (3.5-5.1)
[2016-11-03 02:37] LABS: ALBUMIN 2.5 g/dL (3.4-5.0); TOTAL BILIRUBIN 0.2 mg/dL (<0.1-1.0); TOTAL PROTEIN 6.6 g/dL (6.4-8.2)
[2016-11-03 03:47] VITALS: BP 146/59
[2016-11-03 08:00] VITALS: BP 145/52
[2016-11-03 12:00] VITALS: BP 146/95
[2016-11-03 16:00] VITALS: BP 156/75
[2016-11-03 20:59] LABS: TSH 3.052 uIU/mL (0.358-3.740)
[2016-11-04 04:29] VITALS: BP 153/65
[2016-11-04 05:35] LABS: HEMATOCRIT 25.9 % (37.0-47.0); HEMOGLOBIN 8.7 gm/dL (12.0-15.0); MCH 29.9 pg (26.0-34.0); MCHC 33.8 g/dL (28.0-37.0); MCV 88.5 fL (80.0-100.0); RBC 2.92 mil/uL (4.20-5.00); RDW 14.4 % (10.5-14.5); WBC 9.2 thou/uL (4.0-11.0)
[2016-11-04 06:20] LABS: CALCIUM 8.5 mg/dL (8.5-10.1); CREATININE 1.1 mg/dL (0.6-1.3); POTASSIUM 3.1 mmol/L (3.5-5.1)
[2016-11-04 08:09] VITALS: BP 126/68
[2016-11-04 12:25] VITALS: BP 141/59
[2016-11-04 15:24] VITALS: BP 159/76
[2016-11-04 21:51] VITALS: BP 148/81
[2016-11-04 23:55] VITALS: BP 143/74
[2016-11-05 04:05] VITALS: BP 156/84
[2016-11-05 04:23] LABS: HEMATOCRIT 26.4 % (37.0-47.0); HEMOGLOBIN 9.2 gm/dL (12.0-15.0); MCH 30.3 pg (26.0-34.0); MCHC 34.7 g/dL (28.0-37.0); MCV 87.3 fL (80.0-100.0); RBC 3.02 mil/uL (4.20-5.00); RDW 14.4 % (10.5-14.5); WBC 8.9 thou/uL (4.0-11.0)
[2016-11-05 08:24] VITALS: BP 139/64
[2016-11-05 12:16] VITALS: BP 122/54
[2016-11-05 14:41] VITALS: BP 115/57
[2016-11-05 20:08] VITALS: BP 108/45
[2016-11-06 05:06] VITALS: BP 114/70
[2016-11-06 08:00] VITALS: BP 120/59
[2016-11-06 12:00] VITALS: BP 111/56
[2016-11-06] MEDS ORDERED: LANTUS100 UNIT/M SUBQ (12:06)
[2016-11-06] MEDS ORDERED: COZAAR 25 MG TA25 M1 PO (12:06)
[2016-11-06] MEDS ORDERED: ATENOLOL 25MG T25 M1 PO (12:06)
[2016-11-06] MEDS ORDERED: FLOMAX0.4 MG PO (12:06)
[2016-11-06] MEDS ORDERED: HUMALOG100 UNIT/1 SUBQ ×2 (12:06)
== END 2016-11-06 16:04 | DRG 388 ==
LOC: ER 11:26 → EROBS 15:25 → 4S 15:25
PROVIDERS: Emergency Medicine; Internal Medicine; Nurse Practitioner Family; Psychiatry & Neurology Neuromuscular Medicine; Specialist
PROC: 0DJ08ZZ Inspection of Upper Intestinal Tract, Via Natural or Artificial Opening Endoscopic (ICD-10-PCS; principal; 2016-10-30)
DX: K56.7 Ileus, unspecified (principal); G93.41 Metabolic encephalopathy; N17.9 Acute kidney failure, unspecified; N39.0 Urinary tract infection, site not specified; I47.1 Supraventricular tachycardia; I50.20 Unspecified systolic (congestive) heart failure; K29.60 Other gastritis without bleeding; E11.9 Type 2 diabetes mellitus without complications; E78.5 Hyperlipidemia, unspecified; R33.9 Retention of urine, unspecified; K59.00 Constipation, unspecified; M19.90 Unspecified osteoarthritis, unspecified site; H54.42 Blindness, left eye, normal vision right eye; M54.12 Radiculopathy, cervical region; D64.9 Anemia, unspecified; M48.02 Spinal stenosis, cervical region; B96.20 Unspecified Escherichia coli [E. coli] as the cause of diseases classified elsewhere; I27.2 Other secondary pulmonary hypertension; K21.9 Gastro-esophageal reflux disease without esophagitis; I11.0 Hypertensive heart disease with heart failure; Z86.73 Personal history of transient ischemic attack (TIA), and cerebral infarction without residual deficits; Z90.49 Acquired absence of other specified parts of digestive tract; Z87.11 Personal history of peptic ulcer disease; Z80.8 Family history of malignant neoplasm of other organs or systems; Z79.899 Other long term (current) drug therapy
CPT/HCPCS: 10100; 62110; 62900; 70005